=== PATIENT | male | born 1975 | race Caucasian/White ===

== ENCOUNTER 2017-10-19 02:33 | Emergency (ER) | payer OTHER ==
[~2017-10-19] VITALS: Ht 180.3 cm; Wt 99.8 kg
[~2017-10-19 02:33] MED LIST: CHLO100 PO; HYDR-3533 PO; IBUP800T23 PO; LITH300C2 PO; MMW SWISH-SPIT; PENI500T PO
[2017-10-19 02:43] VITALS: BP 148/107; PULSE 101; RESP 20; TEMP 99.1; O2SAT 98
--- NOTE | 2017-10-19 02:59 | PD ---
HPI Chief Complaint: Oral / Dental Pain or Problem Time Seen by Provider: 03:02 Travel History International Travel<30 days: No Contact w/Intl Traveler<30days: No Traveled to known affect area: No History of Present Illness HPI 42-year-old male presents to the emergency department for complaint of dental pain. Patient states he has multiple dental caries and has an appointment with a dentist Monday10/20/17 to have dental extraction of 6 of his teeth. Patient is currently on amoxicillin. Patient states pain is not resolved with over-the- counter Anbesol or Orajel ibuprofen acetaminophen and aspirin and Hurricaine spray. Patient states because his pain is so severe he cannot sleep. Patient reports this is his second night that he has not slept because of dental pain. Patient is not diabetic. Patient states he does have bipolar disorder and does take lithium and the pain is agitated and his bipolar disorder. Patient does not voice any concerns/complaint of suicidal ideation or homicidal ideation. Patient rates his pain as moderate to severe PFSH Past Medical History Bipolar Disorder: Yes Musculoskeletal: Yes (CHRONIC L-SPINE AND C-SPINE PAIN) Psychiatric: Yes (bipolar) Immunizations Current: Yes Social History Alcohol Use: Yes Tobacco Use: Yes (3/4- 1ppd) Substance Use: Yes (MARIJUANA) Allergies-Medications (Allergen,Severity, Reaction): Coded Allergies: No Known Allergies (Verified , 08/25/16) Reported Meds & Prescriptions Reported Meds & Active Scripts Active Tramadol (Tramadol HCl) 50 Mg Tab 50 Mg PO Q6H PRN Reported Aspirin 325 Mg Tab 325 Mg PO Q6H Amoxicillin 500 Mg Cap 500 Mg PO Q6HR Amoxicillin 500 Mg Cap 500 Mg PO BID [place] Carbonate 300 Mg Tab 300 Mg PO BID Chlorpromazine (Chlorpromazine HCl) 200 Mg Tab 200 Mg PO BID PRN Ibuprofen 800 Mg Tab 800 Mg PO Q6HR PRN Review of Systems Except as stated in HPI: all other systems reviewed are Neg General / Constitutional: No: Fever, Chills HENT: Positive: Dental Difficulties Cardiovascular: No: Chest Pain or Discomfort Respiratory: No: Shortness of Breath Gastrointestinal: No: Abdominal Pain Genitourinary: No: Flank Pain Musculoskeletal: No: Pain Neurologic: No: Weakness Psychiatric: Positive: Anxiety Hematologic/Lymphatic: No: Lymph Node Enlargement Physical Exam Narrative GENERAL: Well-developed well-nourished disheveled male in no respiratory distress reports he is in pain SKIN: Warm and dry. HEAD: Normocephalic. EYES: No scleral icterus. No injection or drainage. ENT: Mucous membranes moist airway is patent multiple dental caries and dental erosion. NECK: Supple, trachea midline. No JVD or lymphadenopathy. CARDIOVASCULAR: Regular rate and rhythm without murmurs, gallops, or rubs. RESPIRATORY: Breath sounds equal bilaterally. No accessory muscle use. GASTROINTESTINAL: Abdomen soft, non-tender, nondistended. MUSCULOSKELETAL: No cyanosis, or edema. BACK: Nontender without obvious deformity. No CVA tenderness. Data Data Last Documented VS Vital Signs Date Time Temp Pulse Resp B/P (MAP) Pulse Ox O2 Delivery O2 Flow Rate FiO2 10/19/17 02:43 99.1 101 20 148/107 (121) 98 Orders Orders Tramadol (Ultram) (10/19/17 03:15) [facility] Medical Decision Making Medical Screen Exam Complete: Yes Emergency Medical Condition: Yes Medical Record Reviewed: Yes Differential Diagnosis Dentalgia dental caries dental abscess Narrative Course Patient reports multiple [id number] medications and regimens without relief patient reportedly is taking antibiotic and does have a prescription for Amoxil; patient one-time dose of pain medication in the emergency department, tramadol. Patient given prescription for tramadol 50 mg 1 by mouth every 6 hours when necessary pain dispensed #3 no refills; patient is encouraged to contact his managing dentist for any further pain management until his procedure on Monday. Diagnosis Primary Impression: Dental caries Additional Impression: Dentalgia Referrals: Dentist 1 day Patient Instructions: Narcotic given in the ED Additional Instructions: Complete course of antibiotic as prescribed May take pain medication as prescribed as needed Follow-up with your dentist regarding any further pain management May continue ibuprofen/Motrin/Advil 800 mg as often as every 8 hours do not take 800 mg any more frequently than every 8 hours May take acetaminophen/Tylenol every 4-6 hours as needed for pain greater than 5 /10 intensity Return to the emergency department for any concerns or change in condition Med/Other Pt SpecificInfo: Prescription(s) given Scripts Tramadol (Tramadol) 50 Mg Tab 50 MG PO Q6H Y for PAIN, #3 TAB 0 Refills Prov: Sasha Miller MD 12/14/17 Disposition: 01 DISCHARGE HOME Condition: Stable Salter,Sasha H. MD Oct 19, 2017 02:59
[2017-10-19] MEDS ORDERED: LITH300T3 PO (03:02)
[2017-10-19] MEDS ORDERED: CHLO200T5 PO (03:02)
[2017-10-19] MEDS ORDERED: ASPI-183 PO (03:02)
[2017-10-19] MEDS ORDERED: AMOX500C PO ×2 (03:02)
[2017-10-19] MEDS ORDERED: IBUP1TAB7 PO (03:02)
[2017-10-19] MEDS ORDERED: TRAM50TA PO (03:04)
[2017-10-19] MEDS ORDERED: traMADol HCL 50 MG TAB PO ONE (03:15)
== END 2017-10-19 03:22 | disposition home or self-care (01) ==
LOC: PHED 02:33
DX: K02.9 Dental caries, unspecified (principal); F31.9 Bipolar disorder, unspecified; F17.200 Nicotine dependence, unspecified, uncomplicated
CPT/HCPCS: 99283